=== PATIENT | female | born 1960 | race Caucasian/White ===

== ENCOUNTER 2022-05-14 00:35 | Emergency (ER) | payer BC ==
[2022-05-14 00:44] VITALS: BP 145/88; PULSE 61; RESP 20; TEMP 97.7
[2022-05-14] MEDS ORDERED: FLUORESCEIN STRIPS 1 MG STRIP LEFT EYE ONE (01:33)
[2022-05-14] MEDS ORDERED: PROPARACAINE 0.5% OPHTH DROPS 15 ML BTL LEFT EYE SCH (01:45)
--- NOTE | 2022-05-14 01:50 | ED ---
Eye Problem HPI - General Chief complaint: Eye Problems Stated complaint: Rt Eye Problems Time Seen by Provider: 05/14/22 01:16 Source: patient, family, RN notes reviewed Mode of arrival: ambulatory Limitations: no limitations - History of Present Illness Initial comments: This is a 62-year-old female who presents to the emergency department with right eye problems. Patient states that she just returned from the airport after flying in from [place]. While in the airport, she started to develop pain in the right eye. She also noticed that the right eye was red. She does have vision loss in the left eye, and is very concerned about worsening vision in the right eye. She does not recall getting anything stuck in her eye, however it is very painful and she is not able to keep her eye open. Also states that she is having a lot of difficulty trying to see out of the eye and it feels like there is a lot of pressure building up. She did try irrigating her eye prior to arrival with no relief. The redness has started to improve, however her symptoms continue to persist. Denies any fevers, chills, sore throat, cough, dyspnea, chest pain, palpitations, abdominal pain, nausea, vomiting, diarrhea, back pain, or headaches. MD chief complaint: eye pain, eye redness, vision change Location: right eye If Injury: none Eye Symptoms: redness, pain, foreign body sensation, decreased vision, photophobia Treatments Prior to Arrival: irrigated eye - Related Data Previous Rx's Medication Instructions Recorded Sulfacetamide 10% Ophth Soln 2 drops RIGHT EYE Q6H 5 Days #15 ml 05/14/22 [Bleph-10] Allergies Allergy/AdvReac Type Severity Reaction Status Date / Time No Known Allergies Allergy Verified 05/14/22 00:44 Review of Systems ROS Statement: Those systems with pertinent positive or pertinent negative responses have been documented in the HPI. ROS Other: All systems not noted in ROS Statement are negative. Past Medical History Past Medical History: Hypertension Additional Past Medical History / Comment(s): ovarian CA History of Any Multi-Drug Resistant Organisms: None Reported Past Surgical History: Cholecystectomy, Hysterectomy, Orthopedic Surgery Past Psychological History: No Psychological Hx Reported Smoking Status: Never smoker Past Alcohol Use History: Occasional Past Drug Use History: None Reported General Exam Limitations: no limitations General appearance: alert, in distress Head exam: Present: atraumatic, normocephalic, normal inspection Eye exam: Present: PERRL, EOMI Pupils: Present: normal accommodation. Absent: unequal Expanded Eyelids: Normal Inspection: Bilateral Pupils: Regular, Round: Bilateral, Reactive: Bilateral Sclera/Conjunctival: Hemorrhage: Right (medial aspect) Respiratory exam: Present: normal lung sounds bilaterally. Absent: respiratory distress, wheezes, rales, rhonchi, stridor Cardiovascular Exam: Present: regular rate, normal rhythm, normal heart sounds. Absent: systolic murmur, diastolic murmur, rubs, gallop, clicks Neurological exam: Present: alert, oriented X3, CN II-XII intact Psychiatric exam: Present: normal affect, normal mood Skin exam: Present: warm, dry, intact, normal color. Absent: rash Course Vital Signs 05/14/22 00:37 Temperature 97.7 F Pulse Rate 61 Respiratory 20 Rate Blood Pressure 145/88 O2 Sat by Pulse 99 Oximetry Medical Decision Making - Medical Decision Making This is a 62-year-old female who presents to the emergency department with right eye pain and visual changes. Fluorescein staining reveals mild corneal abrasion on the inferior aspect of the cornea. Attempted to use the tonometer to check intraocular pressures, however this was not functioning properly, despite changing the batteries. Dr. Ellis was also unable to get this to work properly. Patient was placed on sulfacetamide eyedrops for corneal abrasion. Instructed her to follow-up with her general manager next week, however she needs to return to the emergency department if symptoms continue to progress. Discussed risk for vision loss and permanent blindness if symptoms do not improve. Return precautions reviewed in depth, the patient is instructed to return to the emergency department with any new, worsening, or concerning symptoms. Patient verbalized understanding. This case was discussed in detail with the attending ED physician. Presentation, findings, and treatment plan discussed in detail as well. Disposition Clinical Impression: Corneal abrasion, right Disposition: HOME SELF-CARE Instructions (If sedation given, give patient instructions): Corneal Abrasion (ED), Blurred Vision (ED), Eye Pain (ED) Additional Instructions: Return to the emergency department with any new, worsening, or concerning symptoms. If you vision or pain does worsen significantly, make sure you return immediately. Make sure that you follow up with your general manager this week. Use the eye drops in the right eye every 6hrs for 5 days. Prescriptions: Sulfacetamide 10% Ophth Soln [Bleph-10] 2 drops RIGHT EYE Q6H 5 Days #15 ml Is patient prescribed a controlled substance at d/c from ED?: No Referrals: Nonstaff,Physician [Primary Care Provider] - 1-2 days
[2022-05-14] MEDS ORDERED: SULFACETAMIDE SOD 10% OPHTH DROPS 15 ML BTL RIGHT EYE SCH (03:30)
== END 2022-05-14 03:52 | disposition home or self-care (01) ==
LOC: EC 00:35
DX: S05.01XA Injury of conjunctiva and corneal abrasion without foreign body, right eye, initial encounter (principal); I10 Essential (primary) hypertension; X58.XXXA Exposure to other specified factors, initial encounter
CPT/HCPCS: 99283